=== PATIENT | female | born 1945 | race Caucasian/White ===

== ENCOUNTER → 2019-09-23 | Outpatient (CLI) | payer MEDICARE, OTHER ==
[2019-09-23 09:03] LABS: FREE T4 (FREE THYROXINE) 1.06 ng/dL (0.76-1.46)
== END | disposition home or self-care (01) ==
LOC: MERGE 08:02 → LAB 08:02
PROVIDERS: ATTEND Nurse Practitioner Primary Care
DX: E55.9 Vitamin D deficiency, unspecified (principal); E78.2 Mixed hyperlipidemia; R53.83 Other fatigue; E88.81 Metabolic syndrome and other insulin resistance; E53.9 Vitamin B deficiency, unspecified; E61.1 Iron deficiency; M54.5 Low back pain; L43.9 Lichen planus, unspecified; M85.9 Disorder of bone density and structure, unspecified; Z79.899 Other long term (current) drug therapy
CPT/HCPCS: 36415; 82728; 83540; 83550; 84432; 84439; 84443; 84466; 84481; 84630; 86376; 86800

== ENCOUNTER 2019-10-15 11:02 | Outpatient (CLI) | payer MEDICARE, OTHER | END 2019-10-15 23:59 | disposition home or self-care (01) | LOC: CFH 11:02 | PROVIDERS: ATTEND Nurse Practitioner Primary Care | DX: Z12.31 Encounter for screening mammogram for malignant neoplasm of breast (principal) | CPT/HCPCS: 77067 ==

== ENCOUNTER → 2020-10-17 | Outpatient (CLI) | payer MEDICARE | END | disposition home or self-care (01) | LOC: CFH 10:46 | PROVIDERS: ATTEND Nurse Practitioner Primary Care | DX: Z12.31 Encounter for screening mammogram for malignant neoplasm of breast (principal) | CPT/HCPCS: 77063; 77067 ==

== ENCOUNTER → 2021-01-26 | Outpatient (CLI) | payer MEDICARE | END | disposition home or self-care (01) | LOC: RAD 14:17 | PROVIDERS: ATTEND Nurse Practitioner Primary Care | DX: M50.30 Other cervical disc degeneration, unspecified cervical region (principal); M48.02 Spinal stenosis, cervical region; R20.2 Paresthesia of skin | CPT/HCPCS: 72040 ==

== ENCOUNTER 2021-05-30 06:36 | Outpatient (CLI) | payer MEDICARE ==
[2021-05-30] MEDS ORDERED: REGADENOSON 0.4 MG/5 ML SYRINGE ONE (07:34)
== END 2021-05-30 23:59 | disposition home or self-care (01) ==
LOC: CFH 06:36
PROVIDERS: ATTEND Internal Medicine Cardiovascular Disease
DX: I08.3 Combined rheumatic disorders of mitral, aortic and tricuspid valves (principal); I25.9 Chronic ischemic heart disease, unspecified; R07.9 Chest pain, unspecified; R94.31 Abnormal electrocardiogram [ECG] [EKG]
CPT/HCPCS: 78452; 93017; 93306; A9502; J2785

== ENCOUNTER 2021-06-21 09:06 | Day surgery (SDC) | payer MEDICARE ==
[~2021-06-21] VITALS: Ht 172.7 cm; Wt 81.8 kg
[2021-06-21 09:43] VITALS: BP 156/84
== END 2021-06-21 15:43 | disposition home or self-care (01) ==
LOC: CACL 09:06
PROVIDERS: ATTEND Internal Medicine Cardiovascular Disease
DX: R94.39 Abnormal result of other cardiovascular function study (principal); I20.8 Other forms of angina pectoris; I48.91 Unspecified atrial fibrillation; I27.20 Pulmonary hypertension, unspecified; I10 Essential (primary) hypertension; K21.9 Gastro-esophageal reflux disease without esophagitis; Z79.01 Long term (current) use of anticoagulants; Z79.82 Long term (current) use of aspirin; Z79.899 Other long term (current) drug therapy; Z87.891 Personal history of nicotine dependence; Z88.2 Allergy status to sulfonamides; Z90.49 Acquired absence of other specified parts of digestive tract
CPT/HCPCS: 36415; 80048; 85025; 85610; 93458; 99156; C1769; C1894; J2250; J3010; Q9967